=== PATIENT | male | born 1995 | race Caucasian/White ===

== ENCOUNTER 2017-05-21 16:03 | Emergency (ER) | payer SELFPAY | END 2017-05-21 17:45 | disposition home or self-care (01) | PROVIDERS: Emergency Provider Nurse Practitioner Family; Visit Provider Nurse Practitioner Family | DX: J02.0 Streptococcal pharyngitis (principal) | CPT/HCPCS: 87880; 96372; 99201 ==

== ENCOUNTER 2017-05-23 17:07 | Emergency (ER) | payer SELFPAY | END 2017-05-23 17:57 | disposition home or self-care (01) | PROVIDERS: Emergency Provider Emergency Medicine; Visit Provider Emergency Medicine | DX: J03.80 Acute tonsillitis due to other specified organisms (principal) | CPT/HCPCS: 99282 ==

== ENCOUNTER 2021-11-14 09:20 | Emergency (ER) | payer BC, SELFPAY ==
--- NOTE | 2021-11-14 09:45 | HMH.EDUTC ---
[facility] Disposition Clinical Impression: Abscess of groin Disposition: Home, Self-Care Condition on Discharge: Good Instructions: Boil, DI for Skin Abscess Additional Instructions: Keep the affected area clean and dry. Follow up with your regular doctor. Take the antibiotics as directed and apply the topical antibiotics as directed. Apply warm wet compresses to the affected area three or four times per day. GO TO THE ER FOR ANY WORSENING SYMPTOMS Prescriptions: Sulfamethoxazole/Trimethoprim [Bactrim DS tablet] 1 each PO BID 10 Days #20 tab Transmission Status: Received by [facility] Mupirocin [Bactroban 2% Ointment 22gm tube] 1 applicatio TP TID 7 Days #1 gm Transmission Status: Received by [facility] cephALEXin [cephALEXin 500mg capsule] 500 mg PO Q6H 10 Days #40 cap Transmission Status: Received by [facility] Referrals: Provider,Referral, MD [Primary Care Provider] - Forms: Work/School Release Time of Disposition: 09:55 Medical Decision Making - Medical Records Medical records reviewed: No: I reviewed the patient's medical records. - Wild Inquiry Pt receiving controlled substance: No Vital Signs: 11/14/21 09:47 11/14/21 10:02 Temperature 98.2 F 98.2 F Temperature Source Oral Pulse Rate 73 Pulse Rate [Left Radial] 73 Respiratory Rate 18 18 Blood Pressure 183/79 H Blood Pressure [Right Arm] 183/79 H Blood Pressure Mean [Right Arm] 113 02 Sat by Pulse Oximetry 97 Orders (Tests/Meds): ED MEDICATIONS Discontinued Medications Generic Name Dose Route Start Last Admin Trade Name Medina PRN Reason Stop Dose Admin Ceftriaxone Sodium 1 gm 11/14/21 09:39 11/14/21 09:30 Ceftriaxone 1gm Vial IM 11/14/21 09:40 1 gm ONCE ONE Administration Lidocaine HCl 0 ml 11/14/21 09:39 11/14/21 09:30 Lidocaine 1% 5ml Pf Vial IM 11/14/21 09:40 2 ml ONCE ONE Administration [facility] HPI - General Stated complaint: genital lump Time Seen by Provider: 11/14/21 09:45 - History of Present Illness Provider Complaint: He has had a boil on his suprapubic area for the past 3 days that he wants to have checked and treated. - Related Data Previous Rx's Medication Instructions Recorded cephALEXin [Keflex 500mg Cap] 500 mg PO BID #30 cap 08/24/18 Mupirocin [Bactroban 2% Ointment 1 applicatio TP TID 7 Days #1 gm 11/14/21 22gm tube] Sulfamethoxazole/Trimethoprim 1 each PO BID 10 Days #20 tab 11/14/21 [Bactrim DS tablet] cephALEXin [cephALEXin 500mg 500 mg PO Q6H 10 Days #40 cap 11/14/21 capsule] Allergies Allergy/AdvReac Type Severity Reaction Status Date / Time No Known Allergies Allergy Verified 08/24/18 03:35 [facility] History - Hepatitis A Screen Attestation statement:: This patient has been screened for Hepatitis A risk factors. I have reviewed the patient's past medical history: Yes - Social History Alcohol Intake: never Occupational Status: employed ROS Obtained: Yes All systems reviewed & no additional complaints - Constitutional Constitutional: Denies chills, Denies fever(s) - Genitourinary Male Genitourinary: Denies difficulty urinating, Denies testicular pain, Denies urinary frequency, Denies urinary hesitancy - Musculoskeletal Musculoskeletal: Denies joint pain, Denies back pain, Denies neck pain - Integumentary/Breasts Skin/Breast: Reports as per HPI Physical Exam - General General appearance: alert, in no apparent distress - Head Head exam: atraumatic, normocephalic, normal inspection - Eye Eye exam: Present: normal appearance, PERRL, EOMI - ENT ENT exam: Present: normal exam, normal oropharynx, mucous membranes moist, TM's normal bilaterally, normal external ear exam - Neck Neck exam: Present: normal inspection, full ROM, trachea midline. Absent: meningismus, lymphadenopathy - Chest Chest inspection: Present: normal inspection, symmetric chest wall rise. A
[2021-11-14 09:47] VITALS: BP 183/79; PULSE 73; RESP 18; TEMP 36.8; O2SAT 97; BMI 32.5
[2021-11-14 10:02] VITALS: BP 183/79; PULSE 73; RESP 18; TEMP 36.8
== END 2021-11-14 10:02 | disposition home or self-care (01) ==
PROVIDERS: Emergency Provider Nurse Practitioner Family
DX: L02.214 Cutaneous abscess of groin (principal)
CPT/HCPCS: 96372; 99213; G0463; J0696